=== PATIENT | female | born 1960 | race Caucasian/White ===

== ENCOUNTER 2016-11-06 09:19 | Day surgery (SDC) | payer MEDICARE, BC ==
[~2016-11-06] VITALS: Ht 170.2 cm; Wt 51.3 kg
[~2016-11-06 09:19] MED LIST: ACYCLOVIR400 MG PO; ACYCLOVIR800 MG PO; ALBUTEROL2.5 MG/32 IN; AMBIEN10 MG PO; APAP/HYDRO325 MG/10 PO; BENADRYL25 MG PO; BENTYL20 MG PO; BIOTIN MAXI10000 MCG PO; CIPRO500 MG OR; DIAZEPAM5 M1 PO; DICLOFENAC SODIUM3 % EX; DOCUSATE CAL240 MG PO; DRAMAMINE25 MG PO; ETHAMBUTOL400 MG PO; FISH OIL1400 MG OR; FLONASE NASAL50 MCG; FLUZONE SPLT1 M1 IM; IMITREX50 M1 PO; ISOMETHEPTENE PO; ITRACONAZOLE PO; MEDDOSEPAK PO; MIDRIN PO; MIRALAX3350 N1 PO; MUCINEX600 MG OR; MUCINEX600 MG PO; MULTIVITAM10 PO; MULTIVITAMIN AD1 TA1 PO; ONDANSETRON4 MG PO; PERI-COLACE1 TAB PO; PRILOSEC20 MG/CAP PO; PROAIR HFA IN; PROBIOTIC ACIDOPHILU OR; PROGESTERON EX; PROMETHAZINE25 MG OR; RAYOS2 MG PO; RAYOS5 MG PO; SENOKOT TO GO8.6 MG OR; SINGULAIR10 MG PO; VAGIFEM10 MCG VA; VALIUM10 MG PO; VALIUM2 MG OR; VENTOLIN HFA IN; VICODIN1 TAB PO; VITAMIN D2000 UNI1 PO; VOLTAREN1 % EX; XANAX1 MG PO; ZANTAC150 M1 OR; ZITHROMAX250 MG PO; ZITHROMAX500 MG PO; ZOLPIDEM10 M1 PO; [UNRECOGNIZED DRUG - OTHER] IN; [UNRECOGNIZED DRUG - OTHER] PO
[2016-11-06 13:17] VITALS: BP 115/71
== END 2016-11-06 11:37 | disposition home or self-care (01) ==
LOC: ENDO 09:19
PROVIDERS: ATTEND Internal Medicine Gastroenterology
PROC: 0DBE8ZX Excision of Large Intestine, Via Natural or Artificial Opening Endoscopic, Diagnostic (ICD-10-PCS; principal; 2016-11-06)
PROC: 0DB78ZX Excision of Stomach, Pylorus, Via Natural or Artificial Opening Endoscopic, Diagnostic (ICD-10-PCS; 2016-11-06)
DX: R10.33 Periumbilical pain (principal); K59.00 Constipation, unspecified; K31.9 Disease of stomach and duodenum, unspecified; R11.2 Nausea with vomiting, unspecified; R63.4 Abnormal weight loss; K21.9 Gastro-esophageal reflux disease without esophagitis; R14.0 Abdominal distension (gaseous); K64.4 Residual hemorrhoidal skin tags; K57.30 Diverticulosis of large intestine without perforation or abscess without bleeding; K63.89 Other specified diseases of intestine; K64.8 Other hemorrhoids; K29.50 Unspecified chronic gastritis without bleeding

== ENCOUNTER 2017-02-14 12:38 | Emergency (ER) | payer MEDICARE, BC ==
[~2017-02-14] VITALS: Ht 170.2 cm; Wt 50.0 kg
[2017-02-14] MEDS ORDERED: ACYCLOVIR400 MG PO (13:39)
[2017-02-14] MEDS ORDERED: ZPAK PO (13:39)
[2017-02-14 14:09] LABS: URINE BILIRUBIN - DIPSTICK NEGATIVE (NEGATIVE); URINE BLOOD DIPSTICK NEGATIVE (NEGATIVE); URINE CLARITY CLEAR; URINE COLOR YELLOW; URINE GLUCOSE - DIPSTICK NEGATIVE (NEGATIVE); URINE KETONE NEGATIVE (NEGATIVE); URINE LEUK ESTERASE NEGATIVE (NEGATIVE); URINE NITRITE - DIPSTICK NEGATIVE (Negative); URINE PROTEIN - DIPSTICK NEGATIVE (NEG-TRACE); URINE SPECIFIC GRAVITY 1.015; URINE UROBILINOGEN - DIPSTICK 0.2 E.U./dL (0.2)
[2017-02-14 14:14] VITALS: BP 114/102
== END 2017-02-14 14:28 | disposition home or self-care (01) ==
LOC: ED 12:38
PROVIDERS: Family Medicine
DX: B02.9 Zoster without complications (principal); J44.9 Chronic obstructive pulmonary disease, unspecified